=== PATIENT | female | born 1990 | race Two or more races ===

== ENCOUNTER 2021-01-15 17:45 | Emergency (ER) | payer BC, SELFPAY ==
[2021-01-15 17:56] VITALS: BP 118/75; PULSE 76; RESP 16; TEMP 36.7; O2SAT 100
[2021-01-15] MEDS: TETANUS,DIPHTHERIA,AC PERTUSSIS ADULT (0.5 ML) BOOSTRIX IM (18:27)
[2021-01-15] MEDS: LIDOCAINE HCL 1% LOCAL INJ 20 ML VIAL 5 ML INFILTRATE (18:28)
--- NOTE | 2021-01-15 19:07 | ED.WOUNDLAC ---
HPI - Wound/Laceration General Chief Complaint: Wound/Laceration Stated Complaint: Laceration on finger History of Present Illness HPI narrative: This 30-year-old female that has a finger laceration to her right third finger proximally an inch laceration that was cut on a metal can . Patient is unaware of when her last TD test was. Related Data Allergies Allergy/AdvReac Type Severity Reaction Status Date / Time No Known Allergies Allergy Verified 01/15/21 18:17 Review of Systems Review of Systems: Laceration to the third right finger PMFSH Comments At time as signature, I have reviewed and agree with nursing past medical, social, surgical and family history. Please see nursing chart for further information. There is no relevant family history pertinent to the presenting complaint. Exam Narrative: GENERAL:Well-appearing, well-nourished, and in no acute distress. HEAD:Normocephalic, EYES: PERRLA ENT: Nares clear, no rhinorrhea or epistaxis. Mucous membranes moist. CHEST: Clear to auscultation. No respiratory distress. HEART: Regular rate and rhythm. ABDOMEN: Soft, nontender, nondistended, normal active bowel sounds. EXTREMITIES: Normal range of motion. No edema. Right middle finger laceration 1 cm SKIN: Warm, dry, no rash. NEURO: No focal deficits. Alert and oriented x3. Course Vital Signs Vital signs: Vital Signs Temperature 98.0 F 01/15/21 17:56 Pulse Rate 76 01/15/21 17:56 Respiratory Rate 16 01/15/21 17:56 Blood Pressure 118/75 01/15/21 17:56 Pulse Oximetry 100 01/15/21 17:56 Temperature 98.0 F 01/15/21 17:56 Pulse Rate 76 01/15/21 17:56 Respiratory Rate 16 01/15/21 17:56 Blood Pressure 118/75 01/15/21 17:56 Pulse Oximetry 100 01/15/21 17:56 Procedures Laceration Laceration 1: Date: 01/15/21 Time: 18:50 Site: hand (FINGER) Side (If applicable): right Description: linear Depth: simple, single layer Local Anesthetic: lidocaine 1% Pre-repair: wound explored and irrigated ====== Skin Level ====== Skin layer closed with: vicryl Size (cm): 4-0 (4 ) Number of sutures: 4 Technique: simple, interrupted ====== Subcutaneous Layer ====== ====== Muscle Layer ====== ====== Tendon Layer ====== Dressing: patient tolerated well Discharge Plan Discharge Clinical Impression: Laceration Patient Disposition: Home, Self-Care Condition: Stable Instructions: Antibiotic Form, Finger Laceration (ED) Additional Instructions: YOU NEED TO HAVE STITCHES REMOVED IN 10-14 DAYS Apply ice on your wound for 15 to 20 minutes every hour or as directed. Use an ice pack, or put crushed ice in a plastic bag. Cover it with a towel. Ice helps prevent tissue damage and decreases swelling and pain. Use a splint as directed. A splint will decrease movement and stress on your wound. It may help it heal faster. A splint may be used for lacerations over joints or areas of your body that bend. Ask your healthcare provider how to apply and remove a splint. Decrease scarring of your wound by applying ointments as directed. Do not apply ointments until your healthcare provider says it is okay. You may need to wait until your wound is healed. Ask which ointment to buy and how often to use it. After your wound is healed, use sunscreen over the area when you are out in the sun. You should do this for at least 6 months to 1 year after your injury. Prescriptions: New ibuprofen 800 mg tablet 800 mg PO TID PRN (Reason: pain) Qty: 20 RF: 0 Follow-up/Referrals: PHYSICIAN,AGRICULTURAL ECONOMIST [Primary Care Provider] - Stand Alone Forms: Work/School Release IP Time of Disposition: 19:14
== END 2021-01-15 19:30 | disposition home or self-care (01) ==
PROVIDERS: Emergency Provider Nurse Practitioner Family
DX: S61.212A Laceration without foreign body of right middle finger without damage to nail, initial encounter (principal); W26.8XXA Contact with other sharp object(s), not elsewhere classified, initial encounter; Z23 Encounter for immunization
CPT/HCPCS: 12001; 90471; 90715; 99203; G0463

== ENCOUNTER 2021-01-25 11:53 | Emergency (ER) | payer BC, SELFPAY ==
[2021-01-25 12:01] VITALS: BP 116/68; PULSE 85; RESP 18; TEMP 37.1; O2SAT 100
--- NOTE | 2021-01-25 12:37 | ED.WOUNDLAC ---
HPI - Wound/Laceration General Chief Complaint: Wound/Laceration Stated Complaint: Suture Removal Time Seen by Provider: 01/25/21 12:37 Source: patient, RN notes reviewed and old records reviewed Mode of arrival: ambulatory Limitations: no limitations History of Present Illness HPI narrative: 30 year old female presents to [facility] care with laceration to right middle dorsal finger 10 days ago and is here today to have sutures removed. She reports that she initially cut her finger on a can on the 15 of January. Patient denies any drainage or any acute pain to her right middle finger with full mobility, sensation and circulation intact. Patient has [address] to dorsal mid right middle finger.Patient received update on tetanus at time of laceration repair. Onset (ago): day(s) (10 days ago) Extremity Location: Right: hand (middle dorsal third finger) Related Data Allergies Allergy/AdvReac Type Severity Reaction Status Date / Time No Known Allergies Allergy Verified 01/15/21 18:17 Review of Systems Review of Systems: CONSTITUTIONAL: Denies fever, chills, or sweats. EYES: Denies visual changes, redness, or discharge. ENT: Denies rhinorrhea, congestion, sore throat, or otalgia. CARDIOVASCULAR: Denies chest pain, palpitations, or edema. RESPIRATORY: Denies cough or dyspnea. GASTROINTESTINAL: Denies abdominal pain, nausea, vomiting, or diarrhea. GENITOURINARY: Denies dysuria or hematuria. SKIN: Denies rash or itching.healing laceration to the dorsal aspect of her right middle finger MUSCULOSKELETAL: Denies back pain, joint pain, or myalgia. NEUROLOGIC: Denies headache, numbness, or weakness. PSYCHIATRIC: Denies anxiety or depression. All systems reviewed & are unremarkable except as noted in HPI and below PMFSH Comments At time of signature, agree with nursing past medical, surgical, social and family history. There is no relevant family history pertinent to the presenting complaint Exam Narrative: GENERAL: Well-appearing, well-nourished, and in no acute distress. HEAD: Normocephalic, atraumatic. EYES: PERRLA and EOMI. ENT: Nares clear, no rhinorrhea or epistaxis. Mucous membranes moist. NECK: Supple.no lymphadenopathy CHEST: Clear to auscultation. No respiratory distress. HEART: Regular rate and rhythm. No murmur heard. Normal peripheral pulses. ABDOMEN: Soft, nontender, nondistended, normal active bowel sounds. EXTREMITIES: Normal range of motion. No edema. SKIN: Warm, dry, no rash.sutures to right middle dorsal aspect of right third finger, no redness erythema or drainage of wound site. Sutures removed X4. NEURO: No focal deficits. Alert and oriented x3. Course Vital Signs Vital signs: Vital Signs Temperature 37.1 C 01/25/21 12:01 Pulse Rate 85 01/25/21 12:01 Respiratory Rate 18 01/25/21 12:01 Blood Pressure 116/68 01/25/21 12:01 Pulse Oximetry 100 01/25/21 12:01 Temperature 37.1 C 01/25/21 12:01 Pulse Rate 85 01/25/21 12:01 Respiratory Rate 18 01/25/21 12:01 Blood Pressure 116/68 01/25/21 12:01 Pulse Oximetry 100 01/25/21 12:01 Procedures Other Procedure Procedure 1: Other Procedure: Removal of 4 sutures from the dorsal aspect of the right mid 3rd finger which were put in on 01/15/2021 small area of gaping at middle of wound, steri- strips X3 applied. MDM - Wound/Laceration Differential Diagnosis Differential diagnosis: Likely other (Suture removal, evaluation of wound, gaping of the wound) Medical Records Attestation: I reviewed the patient's medical records. Critical Care Time Critical Care Time Critical Care Time: No Discharge Plan Discharge Clinical Impression: Encounter for removal of sutures Patient Disposition: Home, Self-Care Condition: Stable Instructions: Acute Wounds (ED) Additional Instructions: Keep the area clean and dry No continuous water contact like dishes or swimming You may bathe and wash you hair caution with hair products or
== END 2021-01-25 13:00 | disposition home or self-care (01) ==
PROVIDERS: Emergency Provider Registered Nurse
DX: S61.212D Laceration without foreign body of right middle finger without damage to nail, subsequent encounter (principal); W45.8XXD Other foreign body or object entering through skin, subsequent encounter
CPT/HCPCS: 99212; G0463

== ENCOUNTER 2021-10-18 01:18 | Day surgery (SDC) | payer BC, SELFPAY ==
[2021-10-10 15:51] VITALS: BMI 35.2
--- NOTE | 2021-10-10 15:56 | PC.NURSE ---
Report to the Outpatient Waiting Room, entrance under the green pavilion located off [facility], at time 1100___ on date _10/18/21_. OR Time: ___1300__. - You and your visitor will be asked a series of questions to screen for COVID 19 for your protection. - Only one visitor is allowed at this time. - The patient visitor is requested to leave or wait in car when not with patient. - A mask is required within the hospital. Patients may have clear liquids (water, carbonated beverages, clear teas, apple juice) until 3 hours prior to surgery with a maximum of 20 ounces. - No food from midnight until time of surgery - Infants may have breast milk until 4 hours before surgery, formula 6 hours prior to surgery. - Children will be allowed to drink immediately following surgery. If applicable, please bring a bottle or sippy cup to assist with drinking. Juice, water, soda, and popsicles are readily available. For infants on formula, please bring formula the day of surgery. Pacifiers are allowed. Take the following medications with a SIP of water the morning of surgery: __NONE Medications to discontinue per physician NONE Date to take last dose Please no make-up, nail iranian, hairspray, perfume, deodorant, or body powder the day of surgery. No jewelry (including any body piercings) or valuables the day of surgery, leave them at home. Please take a shower or bath the night before, or the morning of, surgery with an antibacterial soap. Wear comfortable, loose fitting clothing. Children are encouraged to wear pajamas. - Jewelry must be removed prior to entering the operating room. Rings and piercings that are not removed may be cut off. - The hospital will not accept responsibility for valuables. - Please leave all valuables, including medications, at home the day of surgery. If you are going home after surgery, a licensed local bulk driver must drive you home. - NO public transportation without another adult. - We recommend that an adult stay with you for 24 hours following discharge. - We also recommend that you do not drive, make important decision, drink alcoholic beverages, or take any drugs that were not prescribed by your health care provider for at least 24 hours after your discharge time. For Pediatric surgeries, we recommend two adults accompany the child home (only one inside the building at this time). Follow any additional instructions given to you from your surgeon. If you or anyone in your household have experienced Covid symptoms in the past week, please notify your surgeon or the nurse liaison at the phone number below for possible testing. Telephone instructions given to __PATIENT__and asked if any additional questions and then verbalized understanding. Patient advised to call surgeon office or pre surgery nurse liaison [phone] if any additional questions.
--- NOTE | 2021-10-17 13:41 | WPDANESEPPF ---
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 Surgical History Surgical History History of section x 1 History of colposcopy with cervical biopsy 08/13/2021 Family History Family History Father Heart disease Mother Heart disease Cerebrovascular accident Grandparent Heart disease Social History Social History Smoking status: Never smoker Alcohol intake: current Drinks per week: 1 Substance use: current Substance use type: marijuana Other substance usage details: DAILY Living arrangements: with family Anes - Eval Final PreProcedure Day of Procedure 10/17/21 13:41 Patient weight: obese Heart: regular rate and rhythm Lungs: clear to auscultation Airway: Mallampati scale class II Neurological: alert and oriented Last oral intake: >/= 8 hours ASA classification: III Emergent: no Anesthetic plan: proceed Anesthesia type and monitoring: general GIVS and standard monitoring Results Review: All pre-operative results and documents have been reviewed as part of the pre-operative evaluation. Informed Consent: The patient's anesthetic plan and its attendant risks and benefits were discussed with the patient/family/POA. Questions were solicited and answers provided to the satisfaction of the patient/family/POA.
--- NOTE | 2021-10-17 16:23 | PM.IMHP ---
H&P: HPI History of Present Illness Date/Time: 10/17/21 16:23 Chief Complaint: The patient is a 31 yo nulligravid woman with a history of FRANKIE 2 who presents for a scheduled LEEP. Patient had a routine pap smear in 07/2021 that showed LGSIL. A colposcopy was performed in 08/2021 and cervical biopsy confirmed FRANKIE 2. Discussion had with patient regarding management options and decision was made proceed with LEEP procedure. Patient reports feeling well today without complaints. Review of Systems Review of Systems: All systems reviewed & are unremarkable except as noted in HPI and below Constitutional: Constitutional: Reports as per HPI and Reports no additional constitutional complaints Eyes: Eyes: Reports as per HPI and Reports no additional eye complaints ENT: Reports system reviewed and no additional complaints, except as documented and Reports as per HPI Cardiovascular: Cardiovascular: Reports as per HPI and Reports no additional cardiovascular complaints Respiratory: Respiratory: Reports as per HPI and Reports no additional respiratory complaints Gastrointestinal: Gastrointestinal: Reports as per HPI and Reports no additional gastrointestinal complaints Genitourinary: Genitourinary: Reports no additional female genitourinary complaints and Reports as per HPI Musculoskeletal: Musculoskeletal: Reports no additional musculoskeletal complaints and Reports as per HPI Integumentary/Breasts: Skin/Breast: Reports system reviewed and no additional complaints, except as docu and Reports as per HPI Neurologic: Reports system reviewed and no additional complaints, except as documented and Reports as per HPI Psychiatric: Psychiatric: Reports no additional psychiatric complaints and Reports as per HPI Endocrine: Endocrine: Reports no additional endocrine complaints and Reports as per HPI Hematologic/Lymphatic: Hematologic/Lymphatic: Reports no additional hematologic/lymphatic complaints and Reports as per HPI Allergic/Immunologic: Allergic/Immunologic: Reports no additional allergic/immunologic complaints and Reports as per HPI [facility] Past Medical History Medical History History of 02/2020 History of chlamydia 2012 History of gonorrhea 2012 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 Surgical History Surgical History History of section x 1 History of colposcopy with cervical biopsy 08/13/2021 Family History Family History Father Heart disease Mother Heart disease Cerebrovascular accident Grandparent Heart disease Social History Social History Smoking status: Never smoker Alcohol intake: current Drinks per week: 1 Substance use: current Substance use type: marijuana Other substance usage details: DAILY Meds Home Medications and Allergies Home Medications Medication Instructions Recorded Confirmed Type No Home Medications 10/10/21 10/10/21 History Allergies Allergy/AdvReac Type Severity Reaction Status Date / Time No Known Allergies Allergy Verified 10/11/21 12:18 Exam Const: General: cooperative, healthy appearing, comfortable and no acute distress HENMT: Head: normal to inspection Ears: hearing grossly normal bilaterally Eyes: General: appearance normal, both eyes and all related structures Neck: Neck: normal visual inspection Resp: Effort & Inspection: normal respiratory effort Auscultation: clear to auscultation bilaterally Cardio: Rate: regular rate Rhythm: regular rhythm GI: Inspection: non-distended GI Palp: Yes Soft to palpation and No Tenderness to palpation present (GI) : Other: deferred to OR Back/Spine/Pelvis: Back: no CVA tenderness Skin: General skin exam: normal color and no rashes or lesions noted Neuro: Gen
[2021-10-18] VITALS (7 sets, daily range): BP systolic 101–128; BP diastolic 61–77; PULSE 45–74; RESP 12–18; TEMP 36.3–36.4; O2SAT 100
[2021-10-18] MEDS: ACETAMINOPHEN 500 MG TABLET 1000 MG PO (09:38)
[2021-10-18] MEDS: LACTATED RINGERS 1,000 ML 30 ML IV CONT (09:48)
--- NOTE | 2021-10-18 10:12 | WPDHPUPDATE1 ---
History and Physical Update Update Date/Time: 10/18/21 10:12 History and Physical has been reviewed, including an updated exam of the patient. There are NO changes in the patient's condition. Risks, benefits, and alternatives have been discussed and questions answered. Patient agrees to proceed with procedure.
--- NOTE | 2021-10-18 10:16 | W.PM.PROC2 ---
Procedure Note - Detailed Date of Procedure 10/18/21 Pre-op Diagnosis FRANKIE II Post-op Diagnosis Same Procedure Performed Loop electrosurgical excision procedure Surgeon Itzel Barron MD Anesthesia MAC Findings Scattered areas of non-uptake noted around cervix Description of Procedure The patient was taken to the operating room where she self-transferred to the operating room table. She was placed in dorsal supine position. Anesthesia was administered and found to be adequate. The patient was repositioned in dorsal lithotomy position and prepped and draped in the usual sterile fashion. A red rubber catheter was used to drain the bladder of 350 cc of clear urine. A coated bivalve speculum was inserted into the vagina and suction tubing was connected to the speculum. The cervix was well visualized. A paracervical block was performed with 1% lidocaine.? 6 cc of lidocaine was administered on both sides for a total of 12 cc. Lugol's solution was applied across the entire surface of the cervix. Few scattered areas of non-uptake were noted across surface of cervix. A wide loop was selected and connected to the electrical generator. This loop was used to make two passes. The first pass excised the inferior portion of the anterior surface of the cervix. Specimen was removed and set aside. The second pass excised the superior portion of the anterior surface of the cervix, including the cervical os.? Specimen was removed and set aside. An endocervical curettage was also performed. Rollerball cautery was used to cauterize the entire excision site and margins of the excision bed. Excellent hemostasis was noted. The procedure was deemed complete. The vagina was dried and the speculum was removed. The superior portion of the cervix was tagged at 12:00 with a suture. The inferior portion of the cervix was tagged at 6:00 with a suture. Specimen were prepared to be sent to pathology for analysis. The patient was cleansed and dried.? She was taken out of the dorsal lithotomy position and awakened from anesthesia without difficulty.? She was transported to the recovery room in stable condition.? All sponge and instrument counts were correct at the end of the procedure. Estimated Blood Loss 2 IV Fluids 500 Urine Output 350 Drains No Packing No Pathology Yes (superior portion of anterior surface of cervix tagged at 12:00, inferior portion of anterior surface of cervix tagged at 6:00, endocervical curettings) Complications No immediate complications Condition Stable Disposition Same day AM Billing Surgery - Charge Forward: Surgery Billing
[2021-10-18] MEDS: IODINE/POTASSIUM IODIDE 8 ML SOLUTION TOPICAL (10:37)
[2021-10-18] MEDS: LIDOCAINE HCL 1% LOCAL INJ 20 ML VIAL 10 ML INFILTRATE (10:38)
== END 2021-10-18 12:50 | disposition home or self-care (01) ==
PROVIDERS: PCP Nurse Practitioner Family; Visit Provider Student in an Organized Health Care Education/Training Program
PROC: 0UBC7ZZ Excision of Cervix, Via Natural or Artificial Opening (ICD-10-PCS; CPT 57522; principal; 2021-10-18 11:00)
DX: N87.0 Mild cervical dysplasia (principal); F12.90 Cannabis use, unspecified, uncomplicated; E66.9 Obesity, unspecified; Z68.35 Body mass index [BMI] 35.0-35.9, adult
CPT/HCPCS: 57522; 88305; 88342; A9270; J1885; J2250; J2405; J2704; J3010; J7120

== ENCOUNTER 2022-07-14 06:43 | Emergency (ER) | payer BC, SELFPAY ==
[2022-07-14 06:51] VITALS: BP 155/85; PULSE 55; RESP 17; TEMP 36.9; O2SAT 100
--- NOTE | 2022-07-14 07:10 | ED.NAVMDI ---
HPI - Nausea/Vomiting/Diarrhea General Chief complaint: Nausea/Vomiting/Diarrhea Stated complaint: nausea, vomiting, after drinking on Thursday Time Seen by Provider: 07/14/22 06:58 History of Present Illness HPI Narrative: This is a 31-year-old female with no significant past medical history, presenting to the emergency department complaining of nausea and vomiting for the past 2 days. She states she drank more heavily than usual on Thursday and since then has been vomiting. She had 1 episode of diarrhea. She denies bleeding from any source, recent travel or recent sick contacts. Related Data Allergies Allergy/AdvReac Type Severity Reaction Status Date / Time No Known Allergies Allergy Verified 07/14/22 07:07 Review of Systems Review of Systems: CONSTITUTIONAL: Denies fever, chills, or sweats. CARDIOVASCULAR: Denies chest pain, palpitations, or edema. RESPIRATORY: Denies cough or dyspnea. GASTROINTESTINAL: Cramping abdominal pain, nonbloody diarrhea, nausea and nonbloody vomiting GENITOURINARY: Denies dysuria or hematuria. SKIN: Denies rash or itching. MUSCULOSKELETAL: Denies back pain, joint pain, or myalgia. NEUROLOGIC: Denies headache, numbness, dizziness, or weakness. PSYCHIATRIC: Denies anxiety or depression. 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 Surgical History Surgical History H/O LEEP 10/18/21 History of section x 1 History of colposcopy with cervical biopsy 08/13/2021 Family History Family History Father Heart disease Mother Heart disease Cerebrovascular accident Grandparent Heart disease Social History Social History Smoking status: Never smoker Alcohol intake: current Drinks per week: 1 Substance use: current Substance use type: marijuana Other substance usage details: DAILY Living arrangements: with family Gender identity (if verbalized by the patient): Female Sexual Orientation (if Verbalized by the Patient): Straight or Heterosexual Exam Narrative: GENERAL: Well-developed, well-nourished, and in no acute distress. HEAD: Normocephalic, atraumatic. EYES: PERRLA and EOMI. ENT: Nares clear, no rhinorrhea or epistaxis. Mucous membranes moist. Oropharynx without tonsillar hypertrophy exudate or other lesions. CHEST: Clear to auscultation. No respiratory distress. No wheezes rales or rhonchi HEART: Regular rate and rhythm. No murmur heard. Normal peripheral pulses. ABDOMEN: Soft, nontender, nondistended, normal active bowel sounds. EXTREMITIES: Normal range of motion. No edema. SKIN: Warm, dry, no rash. NEURO: No focal deficits. Alert and oriented x3. PSYCH: Normal mood and affect. Course Course Emergency Course: 08:35 - White blood cell count elevated to 18 with 81% neutrophils. CBC otherwise unremarkable. Chemistries unremarkable. test negative. UA has some features consistent with urinary tract infection, though squamous cells are present. On reevaluation, the patient states she feels improved. She tolerated p.o. fluids without vomiting. Given the patient's elevated white blood cell count and persistent vomiting, will discharge with antibiotics for urinary tract infection, antiemetics and recommendation for primary care follow-up. Discussed return and emergency precautions including signs/symptoms of acute abdomen. The patient voiced understanding and is comfortable with the plan. All questions answered to her satisfaction. Vital Signs Vital signs: Vital Signs Temperature 98.4 F 07/14/22 06:51 Pulse Rate 55 L 07/14/22 06:51 Respiratory Rate 17 07/14/22 06:51 Bl
[2022-07-14 07:18] LABS: Basophils Absolute Auto 0.1 K/mm3 (0.0-0.1); Basophils Percent Auto 0.3 % (0.2-1.2); Eosinophils Percent Auto 0.1 % (0-4.4); Hematocrit 42.1 % (37.0-47.0); Hemoglobin 14.5 g/dL (12.0-15.0); Immature Granulocyte Absolute 0.08 K/mm3 (0.00-0.031); Immature Granulocyte Percent A 0.4 % (0-0.5); Lymphocytes Absolute Auto 2.26 K/mm3 (0.9-3.2); Lymphocytes Percent Auto 12.5 % (18.3-44.2); Mean Corpuscular HGB Conc 34.4 g/dl (32-36); Mean Corpuscular Hemoglobin 31.6 pg (26-34); Mean Corpuscular Volume 91.7 fl (80-100); Mean Platelet Volume 8.8 fl (7.4-10.4); Monocytes Absolute Auto 0.9 K/mm3 (0.1-0.6); Monocytes Percent Auto 4.8 % (2.6-8.5); Neutrophils Absolute Auto 14.9 K/mm3 (1.3-6.7); Neutrophils Percent Auto 81.9 % (45.5-73.1); Platelet Count Result 353 k/mm3 (150-375); Red Blood Count 4.59 M/mm3 (4.2-5.4); Red Cell Distribution Width 12.6 % (11.5-14.5); White Blood Count 18.2 K/mm3 (4.5-10.0)
[2022-07-14 07:23] VITALS: BP 126/84; O2SAT 91
[2022-07-14 07:24] LABS: Alanine Aminotransferase 26 U/L (6-35); Albumin Level 5.2 g/dL (3.5-5.1); Alkaline Phosphatase 59 U/L (38-126); Anion Gap 10 mmol/L (8-16); Aspartate Amino Transferase 28 U/L (14-36); Bilirubin,Total 1.1 mg/dL (0.2-1.3); Blood Urea Nitrogen 16 mg/dL (7-17); Calcium 9.6 mg/dL (8.4-10.2); Carbon Dioxide 26 mmol/L (22-30); Chloride 102 mmol/L (98-107); Estimated CRCL calculation 82 ml/min; Estimated Glomerular Filt Rate > 60; Glucose 125 mg/dL (65-110); Lipase 33 U/L (23-300); Potassium 3.4 mmol/L (3.4-5.0); Sodium 138 mmol/L (137-145)
[2022-07-14] MEDS: LACTATED RINGERS 2,000 ML 999 ML IV CONT (07:24)
[2022-07-14] MEDS: PROCHLORPERAZINE EDISYLATE 10 MG/2 ML VIAL IV PUSH (07:27)
[2022-07-14 07:31] VITALS: BP 118/70; O2SAT 94
[2022-07-14 07:35] LABS: Appearance Urine Cloudy (Clear); Bacteria Urine 2+ /hpf; Bilirubin Urine 1+ (Negative); Blood Urine Negative (Negative); Color Urine Dark Yellow (Yellow); Glucose Urine UA Negative (Negative); Ketones Urine 2+ mg/dL (Negative); Leukocyte Esterase Ur 1+ LEU/UL (Negative); Mucus Urine Present /lpf; Nitrate Urine Negative (Negative); Protein Urine 2+ mg/dL (Negative); Squamous Epithelial Cell Urine Moderate /hpf (Few)
[2022-07-14 07:45] VITALS: O2SAT 97
[2022-07-14 07:53] LABS: Add Urine Microscopic? YES; Specific Grav Ur 1.039 (1.001-1.035)
[2022-07-14 08:17] VITALS: BP 104/62; O2SAT 99
[2022-07-14 08:51] VITALS: BP 104/81; PULSE 77; RESP 12
== END 2022-07-14 08:45 | disposition home or self-care (01) ==
PROVIDERS: Emergency Provider Preventive Medicine Aerospace Medicine
DX: N39.0 Urinary tract infection, site not specified (principal); R11.12 Projectile vomiting
CPT/HCPCS: 36415; 80053; 81001; 81025; 83690; 85025; 87086; 87088; 96361; 96374; 99284; J0780; J7120

== ENCOUNTER 2024-10-04 14:03 | Emergency (ER) | payer OTHER, SELFPAY ==
--- NOTE | 2024-10-04 14:05 | ED_ITS ---
HPI - General Adult General Chief complaint: Recheck/Abnormal Lab/Rx Stated complaint: Blood Pressure Check Time Seen by Provider: 10/04/24 14:04 Source: patient Mode of arrival: ambulatory Limitations: no limitations History of Present Illness HPI narrative: Yeimi is a 34year old female patient presenting to the clinic today for a blood pressure check. She reports is taking phentermine and her PCP told her to have her blood pressure checked routinely due to the medication. She denies any anxiety, visual changes, headache, chest pain, shortness of breath, or palpitations. Related Data Allergies Allergy/AdvReac Type Severity Reaction Status Date / Time No Known Allergies Allergy Verified 10/04/24 14:13 Review of Systems Review of Systems: Pertinent positives per HPI. Patient denies any fever, chills, rash, headache, visual changes, dizziness, cough, runny nose, sore throat, shortness of breath, chest pain, palpitations, nausea, vomiting, diarrhea, constipation, abdominal pain, or any urinary issues. 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 History of chlamydia 2012 History of gonorrhea 2012 History of 02/2020 Surgical History Surgical History H/O LEEP 10/18/21 History of colposcopy with cervical biopsy 08/13/2021 History of section x 1 Family History Family History Father Heart disease Mother Heart disease Cerebrovascular accident Grandparent Heart disease Social History Social History Smoking status: Never smoker Alcohol intake: current Drinks per week: 1 Substance use: current Substance use type: marijuana Other substance usage details: DAILY Do You Feel Safe in your Home?: Yes Lack of Transportation: No Lack of Food: Never True Current Housing: I Have Housing Concerned About Future Housing: No Difficulty Paying Gas/Electric Bills: No Difficulty Paying for Meds: No Currently Unemployed: No Education: Bachelor's Degree Difficulty w/ Childcare or Family Care: No Living arrangements: with family Occupation/Education: occupation Additional occupation/education comments: paste up artist Gender identity (if verbalized by the patient): Female Sexual Orientation (if Verbalized by the Patient): Straight or Heterosexual Comments At the time of my signature, I reviewed and agree with the nursing past medical, surgical, social, and family history. There is no relevant family history pertinent to the patient complaint. Exam Narrative: General: Well-developed, morbidly obese, in no apparent distress Head: Normocephalic, atraumatic. Cardio: Regular rate and rhythm, s1 and s2 normal, no murmur appreciated. Resp: Clear to auscultation bilaterally, no rhonchi, rales, wheezing or rubs. Extremities: No deformity, no edema, no cyanosis, capillary refill less than 2 seconds, peripheral pulses palpable and strong. Integumentary: [place], warm, and dry, intact without lesion, no rashes. Course Course Emergency Course: Portions of this record may have been created with voice recognition software. Level of Care: Express Care Visit Vital Signs Vital signs: Vital Signs Temperature 36.8 C 10/04/24 14:11 Pulse Rate 75 10/04/24 14:11 Respiratory Rate 20 10/04/24 14:11 Blood Pressure 144/76 H 10/04/24 14:11 Pulse Oximetry 100 10/04/24 14:11 Oxygen Delivery Room Air 10/04/24 14:11 Temperature 36.8 C 10/04/24 14:11 Pulse Rate 75 10/04/24 14:11 Respiratory Rate 20 10/04/24 14:11 Blood Pressure 144/76 H 10/04/24 14:11 Pulse Oximetry 100 10/04/24 14:11 Oxygen Delivery Room Air 10/04/24 14:11 Vital signs reviewed Medical Decision Making MDM Narrative Medical decision making narrative: At the time of visit patient is resting comfortably on the exam table. Patient appears to be nontoxic. Patient here for blood pressure check. She reports is taking phentermine and her PCP told her to have her blood pressure checked routinely due to the medication. She denies any anxiety, visual changes, headache, chest pain, shortness of breath, or palpitations. B/P 144/76 in the clinic. Plan: Patient has elevated blood pressure in the clinic today without formal diagnosis of hypertension. Blood pressure was 144/76. Patient denies any other concerns. Supportive measures were discussed with the patient and they voiced understanding discharge instructions and agrees to treatment plan. Return precautions reviewed Differential Diagnosis Differential Diagnosis: Hypertension, elevated blood pressure without diagnosis of hypertension, anxiety, adverse reaction to medications Vital Signs Vital Signs: Vital Signs Temperature 36.8 C 10/04/24 14:11 Pulse Rate 75 10/04/24 14:11 Respiratory Rate 20 10/04/24 14:11 Blood Pressure 144/76 H 10/04/24 14:11 Pulse Oximetry 100 10/04/24 14:11 Oxygen Delivery Room Air 10/04/24 14:11 Temperature 36.8 C 10/04/24 14:11 Pulse Rate 75 10/04/24 14:11 Respiratory Rate 20 10/04/24 14:11 Blood Pressure 144/76 H 10/04/24 14:11 Pulse Oximetry 100 10/04/24 14:11 Oxygen Delivery Room Air 10/04/24 14:11 Discharge Plan Discharge Clinical Impression: Elevated blood pressure reading in office without diagnosis of hypertension Patient Disposition: Home Condition: Stable Instructions: Antibiotic Form, Low-Sodium Diet (ED), Hypertension (ED) Additional Instructions: Blood pressure was 144/ 76 in the clinic today. Increase fluids and stay well hydrated Eat a low-sodium diet. Exercise vigorously for 30 minutes daily Avoid smoking/vaping Recommend keeping a diary of your blood pressures-take at random times daily and take this to your primary care provider for evaluation Follow-up with your PCP as scheduled You have an elevated blood pressure in the clinic today and I recommend follow- up with primary care physician to have this reevaluated within the next week if symptoms persist. [place] [employer] guidelines state that normal blood pressure is 120/80 or less. Anything over 120/80 is considered elevated and should be monitored. You may need to decrease you salt intake and eat a heart healthy diet to help lower you blood pressure, other treatments would include decreasing stress, weight loss, stop caffeine, and quit smoking. Your primary care provider can determine whether you need to start antihypertensive medications. Untreated high blood pressure can cause dizziness, headaches, visual changes, blindness, kidney failure, stroke, heart attack. Patient Language: Qatari Prescriptions: No Action phentermine 37.5 mg capsule 37.5 mg PO DAILY Qty: 30 0RF Rx Instructions: must administer 30 minutes before or 1-2 hours after breakfast Follow-up/Referrals: Key Caraballo, [employer] [Primary Care Provider] - Time of Disposition: 14:13 Quality NIHSS Nursing Documentation ED NIHSS nursing documentation: reviewed/agree
[2024-10-04 14:11] VITALS: BP 144/76; PULSE 75; RESP 20; TEMP 36.8; O2SAT 100
== END 2024-10-04 14:21 | disposition home or self-care (01) ==
PROVIDERS: Emergency Provider Nurse Practitioner Family; PCP Nurse Practitioner Family
DX: R03.0 Elevated blood-pressure reading, without diagnosis of hypertension (principal); Z79.899 Other long term (current) drug therapy
CPT/HCPCS: 99211; G0463